=== PATIENT | male | born 1935 | race Caucasian/White ===

== ENCOUNTER 2018-09-18 11:44 | Emergency (ER) | payer MEDICARE, OTHER ==
--- NOTE | 2018-09-18 12:55 | CT ---
EXAM DESCRIPTION: Head. CT head without contrast. CLINICAL HISTORY: fall, takes anticoagulants COMPARISON: None available TECHNIQUE: Multiple axial images of the head without contrast. Multiplanar reformatted images. This exam was performed according to our departmental dose-optimization program, which includes automated exposure control, adjustment of the mA and/or kV according to patient size and/or use of iterative reconstruction technique. FINDINGS: There is no CT evidence of intracranial hemorrhage, mass effect, or large territory infarction. Moderate generalized volume loss. Moderate patchy supratentorial white matter hypodensities. There are no abnormal extra-axial fluid collections. Calcific plaque in the visualized arteries. Acute displaced nasal bone fractures with large frontal scalp hematoma and laceration with subcutaneous emphysema. No acute calvarial defect. Moderate mucosal thickening throughout the paranasal sinuses. The mastoid air cells are clear. IMPRESSION: 1. No CT evidence of an acute intracranial abnormality. 2. Acute displaced nasal bone fractures with associated subcutaneous emphysema and large frontal scalp hematoma. 3. Senescent changes. Electronically signed by: Maximiliano Schmitz MD 09/18/2018 12:52 PM CDT
--- NOTE | 2018-09-18 12:58 | CT ---
EXAM DESCRIPTION: Cervical Spine CLINICAL HISTORY: fall COMPARISON: None Available. TECHNIQUE: Multiple axial images of the cervical spine without contrast. Multiplanar reformatted images. This exam was performed according to our departmental dose-optimization program, which includes automated exposure control, adjustment of the mA and/or kV according to patient size and/or use of iterative reconstruction technique. FINDINGS: Vertebral body stature and alignment are maintained. There is no acute fracture or destructive osseous lesion. Multilevel spondylitic changes in the cervical spine with moderate to severe disc narrowing from C4-C5 through C6-C7. Disc osteophyte complexes with facet hypertrophy and uncovertebral spurring at these levels. Moderate severe bilateral neural foraminal stenoses. Up to moderate spinal canal stenosis at C6-C7. Calcific plaque in the visualized arteries. Operative changes in the left neck soft tissues. The visualized lung apices are clear. IMPRESSION: 1. No CT evidence of an acute osseous abnormality in the cervical spine. 2. Multilevel spondylitic changes. Electronically signed by: Maximiliano Schmitz MD 09/18/2018 12:55 PM CDT
--- NOTE | 2018-09-18 14:26 | ED.PDOC ---
History of Present Illness - General Chief Complaint: Trauma Stated Complaint: fall Time Seen by Provider: 09/18/18 12:18 Source: patient Exam Limitations: no limitations - History of Present Illness Initial Comments: Patient presents after a fall where he struck his face on the porch. He says that he was holding the screen door and the wind blew it, forcing the patient off-balance. He denies LOC. He takes anticoagulants but does not recall which one. He has a laceration to the bridge of his nose. He says he is allergic to Novacaine and has never had sutures before. No other complaints. Timing/Duration: 1-3 hours Severity: moderate Improving Factors: nothing Worsening Factors: nothing Associated Symptoms: denies symptoms Allergies/Adverse Reactions: Allergies Procaine [From Novocain] Allergy (Verified 09/18/18 12:17) Home Medications: Ambulatory Orders Unobtainable 09/18/18 Review of Systems - Review of Systems Constitutional: States: no symptoms reported EENTM: States: see HPI Respiratory: States: no symptoms reported Cardiology: States: no symptoms reported Gastrointestinal/Abdominal: States: no symptoms reported Genitourinary: States: no symptoms reported Musculoskeletal: States: no symptoms reported Skin: States: see HPI Neurological: States: no symptoms reported Endocrine: States: no symptoms reported Hematologic/Lymphatic: States: no symptoms reported Past Medical History (General) - Patient Medical History Hx Stroke: Yes Hx Congestive Heart Failure: No Hx Diabetes: Yes - Vaccination History Hx Influenza Vaccination: Yes Hx Pneumococcal Vaccination: Yes Immunizations Up to Date: Yes - Social History Hx Tobacco Use: No Family Medical History - Family History Father Family History: Unknown Living Status: Unknown Physical Exam - Physical Exam General Appearance: Alert Eye Exam: bilateral normal Ears, Nose, Throat: other - swelling and deformity over the nasal bones. There is a 3 cm vertical laceration from the bridge of the nose to the lower forehead. It is jagged and hemostatic. Neck: non-tender, full range of motion, supple Respiratory: lungs clear, normal breath sounds Cardiovascular/Chest: normal peripheral pulses, regular rate, rhythm Gastrointestinal/Abdominal: normal bowel sounds, non tender, soft Skin Exam: other - see ENT section Progress - Progress Progress: 09/18/18 16:20 Laboratory Tests 09/18/18 09/18/18 09/18/18 12:52 12:52 12:52 WBC 11.9 H RBC 4.77 Hgb 14.1 Hct 43.2 MCV 90.4 MCH 29.5 MCHC 32.6 L RDW 13.8 Plt Count 273 MPV 7.9 Absolute Neuts (auto) 9.20 H Absolute Lymphs (auto) 1.40 Absolute Monos (auto) 0.90 H Absolute Eos (auto) 0.50 H Absolute Basos (auto) 0.10 Neutrophils % 76.9 Lymphocytes % 11.4 L Monocytes % 7.2 Eosinophils % 3.9 Basophils % 0.6 PT 9.7 INR 0.97 PTT (SP) Sodium 134 L Potassium 4.3 Chloride 101 Carbon Dioxide 22 Anion Gap 15.3 BUN 24 H Creatinine 0.73 BUN/Creatinine Ratio 32.9 H Random Glucose 245 H Serum Osmolality 280.4 Calcium 9.2 Total Bilirubin 0.6 AST 18 ALT 14 Alkaline Phosphatase 56 Serum Total Protein 7.9 Albumin 3.9 Globulin 4.0 H Albumin/Globulin Ratio 1.0 L 09/18/18 12:52 WBC RBC Hgb Hct MCV MCH MCHC RDW Plt Count MPV Absolute Neuts (auto) Absolute Lymphs (auto) Absolute Monos (auto) Absolute Eos (auto) Absolute Basos (auto) Neutrophils % Lymphocytes % Monocytes % Eosinophils % Basophils % PT INR PTT (SP) 24.3 Sodium Potassium Chloride Carbon Dioxide Anion Gap BUN Creatinine BUN/Creatinine Ratio Random Glucose Serum Osmolality Calcium Total Bilirubin AST ALT Alkaline Phosphatase Serum Total Protein Albumin Globulin Albumin/Globulin Ratio Trauma labs unremarkable. CT head negative for intracranial hemorrhage, however, bilateral displaced nasal bone fractures were seen. Laceration was prepped and draped in a sterile fashion. Patient said he had been given lidocaine before without any problems. 3 cc of lidocaine with epinephrine were used to gain excellent local anesthesia. 9 interrupted sutures using 4-[address] and excellent wound edge opposition obtained. Area was clean, dry, and hemostatic upon completion. Patient tolerated procedure well. He was instructed to see an Ear, Nose, and Throat doctor in the next 3-5 days and to have the sutures removed in 5-7 days. Care instructions given. E.R. warnings given. Questions were elicited and answered. Patient voiced understanding and agreement with the plan. Patient up to date on his tetanus. Departure - Departure Clinical Impression: Fracture of nasal bones, Laceration Disposition: Discharge to Home or Self Care Condition: Good Departure Forms: ED Discharge - Pt. Copy, Patient Portal Self Enrollment Instructions: DI for Trauma Diet: resume usual diet Activity: increase activity as tolerated Home Medications: Ambulatory Orders Unobtainable 09/18/18 Additional Instructions: Tylenol and ice for pain control. Do not take aspirin, ibuprofen, or naproxen for one week. See an Ear, Nose and throat doctor in 3 to 5 days to evaluate the nasal bone fractures. Return to your regular doctor or the E.R. for suture removal in 5-7 days. Return to the E.R. for loss of consciousness, temperature above 100.4 , bleeding, or increasing pain.
[2018-09-18] MEDS ORDERED: CHLORHEXIDINE GLUCONATE 4 % 15 ML UD TOP ONE (15:23)
[2018-09-18] MEDS ORDERED: LIDOCAINE 1% W/ EPINEPHRINE 20 ML VIAL INJ ONE (15:23)
[2018-09-18] MEDS ORDERED: NEOMYCIN-BACITRACIN-POLYMYXIN 0.9 GM UD TOP ONE (16:21)
[2018-09-18 16:44] VITALS: TEMP 98.2; O2SAT 95
[2018-09-18 17:44] VITALS: BP 154/98
== END 2018-09-18 17:43 | disposition home or self-care (01) ==
LOC: ER 11:44
DX: S02.2XXB Fracture of nasal bones, initial encounter for open fracture (principal); E11.9 Type 2 diabetes mellitus without complications; W18.39XA Other fall on same level, initial encounter; Y92.89 Other specified places as the place of occurrence of the external cause; Z79.01 Long term (current) use of anticoagulants; Z88.8 Allergy status to other drugs, medicaments and biological substances; Z86.73 Personal history of transient ischemic attack (TIA), and cerebral infarction without residual deficits